=== PATIENT | male | born 1950 | race Caucasian/White ===

== ENCOUNTER 2023-01-21 12:13 | Inpatient (IN) | payer OTHER, MEDICARE ==
[2023-01-21 15:06] LABS: BASO % 0.5 % (0-2.0); EOS % 1.9 % (0-4.5); HEMATOCRIT 38.4 % (35.4-49); HEMOGLOBIN 12.9 GM/dL (11.7-16.9); LYMPH % 18.3 % (8-40); MCH 29.1 pg (25.7-33.7); MCHC 33.5 g/dl (32.0-35.9); MEAN CELL VOLUME 86.8 fl (80-96); MEAN PLT VOLUME 8.3 fl (7.5-11.1); MONO % 6.6 % (3.8-10.2); NEUT % 72.7 % (42.8-82.8); PLATELET COUNT 331 10^3/uL (134-434); RBC 4.43 M/mm3 (4.00-5.60); RDW 14.8 % (11.9-15.9); WHITE BLOOD COUNT 11.3 K/mm3 (4.0-10.0)
[2023-01-21 15:22] LABS: INR 1.21 (0.83-1.09); POTASSIUM 3.7 mmol/L (3.5-5.1)
[2023-01-21 15:25] LABS: CALCIUM 9.3 mg/dL (8.5-10.1)
[2023-01-21 15:26] LABS: ALBUMIN 3.6 g/dl (3.4-5.0); BLOOD UREA NITROGEN 12.8 mg/dL (7-18)
[2023-01-21 15:29] LABS: CREATININE 0.7 mg/dL (0.55-1.3)
[2023-01-21 15:30] LABS: BILIRUBIN,TOTAL 1.2 mg/dL (0.2-1); TOT PROT 7.2 g/dl (6.4-8.2)
[2023-01-21] MEDS ORDERED: VANCOMYCIN 1,000 MG in DEXTROSE 5%-WATER - 250 ML IVPB ONE (15:31)
[2023-01-21 16:07] LABS: ERYTHROCYTE SEDIMENTATION RATE 22 mm/hr (0-20)
[2023-01-21] MEDS ORDERED: BACITRACIN ZINC 15 GM TUBE TOPICAL OINTMENT ONE (16:25)
[2023-01-21] MEDS ORDERED: METOPROLOL TARTRATE 50 MG PO SCH (17:15)
[2023-01-21] MEDS ORDERED: VANCOMYCIN HCL 1,500 MG in DEXTROSE 5%-WATER - 250 ML IVPB SCH (17:15)
[2023-01-21] MEDS ORDERED: VANCOMYCIN PREMIX 1.5 GM 1,500 MG/300 ML BAG IVPB ONE (17:30)
[2023-01-21] MEDS ORDERED: CEFEPIME HCL 2 GM VIAL (RESTRICTED TO ID) IVPB SCH (22:00)
[2023-01-21] MEDS ORDERED: ELIQUIS PO SCH (22:00)
[2023-01-21] MEDS ORDERED: ROSUVASTATIN CA 5 MG TABLET ONE (22:07)
[2023-01-21] MEDS ORDERED: METOPROLOL TARTRATE 50 MG TABLET (FP) ONE (22:07)
[2023-01-21] MEDS ORDERED: APIXABAN 5 MG TABLET ONE (22:07)
[2023-01-21] MEDS ORDERED: CEFEPIME 2 GM/100 ML BAG IVPB ONE (22:08)
[2023-01-21] MEDS: ROSUVASTATIN CA 5 MG TABLET PO SCH (22:41)
[2023-01-21] MEDS: METOPROLOL TARTRATE 50 MG TABLET (FP) PO SCH (22:41)
[2023-01-21] MEDS: APIXABAN 5 MG TABLET PO SCH (22:41)
[2023-01-21] MEDS: CEFEPIME 2 GM in DEXTROSE 5%-WATER 100 ML IVPB SCH (22:43)
[2023-01-21] MEDS: INSULIN SLIDING SCALE (NOVOLOG) 1 VIAL SQ SCH (22:51)
[2023-01-22 00:25] VITALS: BMI 32.3
[2023-01-22] MEDS: INSULIN SLIDING SCALE (NOVOLOG) 1 VIAL SQ SCH ×4 (06:00→22:02)
[2023-01-22] MEDS ORDERED: VANCOMYCIN PREMIX 1.5 GM 1,500 MG/300 ML BAG IVPB SCH (09:00)
[2023-01-22] MEDS: PARoxetine HCL 10 MG TABLET PO SCH (09:20)
[2023-01-22] MEDS: APIXABAN 5 MG TABLET PO SCH ×2 (09:21→21:49)
[2023-01-22] MEDS: CEFEPIME 2 GM in DEXTROSE 5%-WATER 100 ML IVPB SCH (09:21)
[2023-01-22] MEDS: METOPROLOL TARTRATE 50 MG TABLET (FP) PO SCH ×2 (09:21→21:49)
[2023-01-22 09:24] LABS: BASO % 0.6 % (0-2.0); EOS % 3.6 % (0-4.5); HEMATOCRIT 36.6 % (35.4-49); HEMOGLOBIN 12.7 GM/dL (11.7-16.9); LYMPH % 19.3 % (8-40); MCH 29.7 pg (25.7-33.7); MCHC 34.8 g/dl (32.0-35.9); MEAN CELL VOLUME 85.3 fl (80-96); MEAN PLT VOLUME 8.3 fl (7.5-11.1); MONO % 6.2 % (3.8-10.2); NEUT % 70.3 % (42.8-82.8); PLATELET COUNT 308 10^3/uL (134-434); RBC 4.29 M/mm3 (4.00-5.60); RDW 14.7 % (11.9-15.9); WHITE BLOOD COUNT 9.4 K/mm3 (4.0-10.0)
[2023-01-22 09:42] LABS: POTASSIUM 3.8 mmol/L (3.5-5.1)
[2023-01-22 09:59] LABS: ALBUMIN 3.2 g/dl (3.4-5.0); BLOOD UREA NITROGEN 13.9 mg/dL (7-18); CALCIUM 8.8 mg/dL (8.5-10.1); MAGNESIUM 2.2 mg/dL (1.8-2.4)
[2023-01-22] MEDS ORDERED: PAROXETINE HCL 25 MG PO SCH (10:00)
[2023-01-22] MEDS ORDERED: LOSARTAN 50MG/HCTZ 12.5MG 1 TAB PO SCH (10:00)
[2023-01-22] MEDS ORDERED: PATIENT'S OWN MEDICATION (NON-FORMULARY) (Losartan/Hydrochlorothiazide [Losartan-Hctz 100- PO SCH (10:00)
[2023-01-22] MEDS ORDERED: HYDROCHLOROTHIAZIDE 25 MG TABLET (FP) PO SCH (10:00)
[2023-01-22] MEDS ORDERED: ROSUVASTATIN CALCIUM 5 MG PO SCH (10:00)
[2023-01-22 10:02] LABS: CREATININE 0.7 mg/dL (0.55-1.3); PHOSPHOROUS 3.1 mg/dL (2.5-4.9)
[2023-01-22 10:03] LABS: TOT PROT 6.6 g/dl (6.4-8.2)
[2023-01-22 10:10] LABS: BILIRUBIN,TOTAL 1.3 mg/dL (0.2-1)
[2023-01-22] MEDS: CEFTRIAXONE 2 GM in DEXTROSE 5%-WATER 100 ML IVPB SCH (17:05)
[2023-01-22] MEDS: CEFEPIME HCL 2 GM VIAL (RESTRICTED TO ID) IVPB SCH (17:09)
[2023-01-22] MEDS: ROSUVASTATIN CA 5 MG TABLET PO SCH (21:49)
[2023-01-22] MEDS: VANCOMYCIN PREMIX 1.5 GM 1,500 MG/300 ML BAG IVPB SCH (21:50)
[2023-01-23] MEDS: METOPROLOL TARTRATE 50 MG TABLET (FP) PO SCH ×2 (09:37→21:54)
[2023-01-23] MEDS: PARoxetine HCL 10 MG TABLET PO SCH (09:37)
[2023-01-23] MEDS: CEFTRIAXONE 2 GM in DEXTROSE 5%-WATER 100 ML IVPB SCH (09:37)
[2023-01-23] MEDS: APIXABAN 5 MG TABLET PO SCH ×2 (09:37→21:54)
[2023-01-23] MEDS: VANCOMYCIN PREMIX 1.5 GM 1,500 MG/300 ML BAG IVPB SCH ×2 (09:38→21:54)
[2023-01-23 10:00] LABS: POTASSIUM 4.1 mmol/L (3.5-5.1)
[2023-01-23 10:05] LABS: HEMATOCRIT 36.6 % (35.4-49); HEMOGLOBIN 13.2 GM/dL (11.7-16.9); MCH 30.8 pg (25.7-33.7); MCHC 36.1 g/dl (32.0-35.9); MEAN CELL VOLUME 85.3 fl (80-96); MEAN PLT VOLUME 8.2 fl (7.5-11.1); PLATELET COUNT 307 10^3/uL (134-434); RBC 4.28 M/mm3 (4.00-5.60); RDW 14.9 % (11.9-15.9); WHITE BLOOD COUNT 7.8 K/mm3 (4.0-10.0)
[2023-01-23 10:06] LABS: CALCIUM 8.8 mg/dL (8.5-10.1)
[2023-01-23 10:07] LABS: ALBUMIN 3.1 g/dl (3.4-5.0); MAGNESIUM 2.2 mg/dL (1.8-2.4)
[2023-01-23 10:10] LABS: CREATININE 0.8 mg/dL (0.55-1.3); PHOSPHOROUS 2.8 mg/dL (2.5-4.9)
[2023-01-23 10:11] LABS: BILIRUBIN,TOTAL 0.9 mg/dL (0.2-1); TOT PROT 6.5 g/dl (6.4-8.2)
[2023-01-23] MEDS: INSULIN SLIDING SCALE (NOVOLOG) 1 VIAL SQ SCH ×4 (11:50→22:04)
[2023-01-23] MEDS: ROSUVASTATIN CA 5 MG TABLET PO SCH (21:54)
[2023-01-24] MEDS: INSULIN SLIDING SCALE (NOVOLOG) 1 VIAL SQ SCH ×4 (06:00→22:01)
[2023-01-24] MEDS: METOPROLOL TARTRATE 50 MG TABLET (FP) PO SCH ×2 (09:22→21:55)
[2023-01-24] MEDS: APIXABAN 5 MG TABLET PO SCH (09:23)
[2023-01-24] MEDS: CEFTRIAXONE 2 GM in DEXTROSE 5%-WATER 100 ML IVPB SCH (09:23)
[2023-01-24 09:51] LABS: HEMATOCRIT 39.1 % (35.4-49); HEMOGLOBIN 13.3 GM/dL (11.7-16.9); MCH 29.8 pg (25.7-33.7); MCHC 34.1 g/dl (32.0-35.9); MEAN CELL VOLUME 87.2 fl (80-96); MEAN PLT VOLUME 8.5 fl (7.5-11.1); PLATELET COUNT 347 10^3/uL (134-434); RBC 4.48 M/mm3 (4.00-5.60); RDW 14.2 % (11.9-15.9); WHITE BLOOD COUNT 8.5 K/mm3 (4.0-10.0)
[2023-01-24 10:09] LABS: POTASSIUM 4.3 mmol/L (3.5-5.1)
[2023-01-24 10:16] LABS: CALCIUM 8.9 mg/dL (8.5-10.1)
[2023-01-24] MEDS: PARoxetine HCL 10 MG TABLET PO SCH (10:16)
[2023-01-24 10:17] LABS: ALBUMIN 3.3 g/dl (3.4-5.0); BLOOD UREA NITROGEN 15.2 mg/dL (7-18); MAGNESIUM 2.3 mg/dL (1.8-2.4)
[2023-01-24 10:20] LABS: CREATININE 0.9 mg/dL (0.55-1.3); PHOSPHOROUS 2.6 mg/dL (2.5-4.9)
[2023-01-24 10:22] LABS: BILIRUBIN,TOTAL 0.8 mg/dL (0.2-1); TOT PROT 7.1 g/dl (6.4-8.2)
[2023-01-24] MEDS: VANCOMYCIN HCL 1,500 MG in DEXTROSE 5%-WATER - 250 ML IVPB SCH ×2 (10:45→10:46)
[2023-01-24] MEDS: VANCOMYCIN PREMIX 1.5 GM 1,500 MG/300 ML BAG IVPB SCH ×2 (10:51→21:54)
[2023-01-24] MEDS ORDERED: PARoxetine HCL 20 MG TABLET PO SCH (17:00)
[2023-01-24] MEDS ORDERED: INSULIN (LEVEMIR) 100 UNITS/ML UNITS SQ ONE (21:35)
[2023-01-24] MEDS: ROSUVASTATIN CA 5 MG TABLET PO SCH (21:55)
[2023-01-25] MEDS: VANCOMYCIN PREMIX 1.5 GM 1,500 MG/300 ML BAG IVPB SCH ×2 (08:44→10:25)
[2023-01-25] MEDS: CEFTRIAXONE 2 GM in DEXTROSE 5%-WATER 100 ML IVPB SCH (09:18)
[2023-01-25] MEDS: METOPROLOL TARTRATE 50 MG TABLET (FP) PO SCH ×2 (09:19→22:29)
[2023-01-25] MEDS: PARoxetine HCL 20 MG TABLET PO SCH (09:19)
[2023-01-25] MEDS: CEFTRIAXONE 1 GM in DEXTROSE 5%-WATER - 50 ML IVPB SCH (10:29)
[2023-01-25] MEDS: DOXYCYCLINE HYCLATE 100 MG CAPSULE PO SCH ×2 (10:29→17:25)
[2023-01-25 11:05] LABS: HEMATOCRIT 36.2 % (35.4-49); HEMOGLOBIN 12.9 GM/dL (11.7-16.9); MCH 30.1 pg (25.7-33.7); MCHC 35.7 g/dl (32.0-35.9); MEAN CELL VOLUME 84.3 fl (80-96); PLATELET COUNT 332 10^3/uL (134-434); RDW 14.4 % (11.9-15.9); WHITE BLOOD COUNT 9.2 K/mm3 (4.0-10.0)
[2023-01-25] MEDS: INSULIN SLIDING SCALE (NOVOLOG) 1 VIAL SQ SCH ×3 (11:10→22:29)
[2023-01-25 11:35] LABS: ALBUMIN 3.3 g/dl (3.4-5.0); CALCIUM 8.6 mg/dL (8.5-10.1)
[2023-01-25 11:36] LABS: BLOOD UREA NITROGEN 14.8 mg/dL (7-18); MAGNESIUM 2.3 mg/dL (1.8-2.4)
[2023-01-25 11:39] LABS: CREATININE 0.8 mg/dL (0.55-1.3); PHOSPHOROUS 2.6 mg/dL (2.5-4.9)
[2023-01-25 11:40] LABS: BILIRUBIN,TOTAL 0.8 mg/dL (0.2-1); TOT PROT 6.7 g/dl (6.4-8.2)
[2023-01-25] MEDS ORDERED: ACETAMINOPHEN 325 MG TABLET (FP) PO PRN (17:02)
[2023-01-25] MEDS: ROSUVASTATIN CA 5 MG TABLET PO SCH (22:29)
[2023-01-26] MEDS: INSULIN SLIDING SCALE (NOVOLOG) 1 VIAL SQ SCH ×5 (01:07→21:36)
[2023-01-26] MEDS: CEFTRIAXONE 1 GM in DEXTROSE 5%-WATER - 50 ML IVPB SCH (09:19)
[2023-01-26] MEDS: PARoxetine HCL 20 MG TABLET PO SCH (09:19)
[2023-01-26] MEDS: DOXYCYCLINE HYCLATE 100 MG CAPSULE PO SCH ×2 (09:19→17:01)
[2023-01-26] MEDS: METOPROLOL TARTRATE 50 MG TABLET (FP) PO SCH ×2 (09:19→21:35)
[2023-01-26 12:50] LABS: INR 1.25 (0.83-1.09); PROTHROMBIN TIME (PATIENT) 14.5 SEC (9.7-13.0)
[2023-01-26 13:12] LABS: HEMATOCRIT 38.3 % (35.4-49); HEMOGLOBIN 13.2 GM/dL (11.7-16.9); MCH 29.7 pg (25.7-33.7); MCHC 34.5 g/dl (32.0-35.9); RBC 4.46 M/mm3 (4.00-5.60); RDW 14.6 % (11.9-15.9)
[2023-01-26 13:13] LABS: POTASSIUM 4.2 mmol/L (3.5-5.1)
[2023-01-26 13:15] LABS: PLATELET COUNT 323 10^3/uL (134-434); WHITE BLOOD COUNT 12.7 K/mm3 (4.0-10.0)
[2023-01-26 13:18] LABS: ALBUMIN 3.3 g/dl (3.4-5.0); BLOOD UREA NITROGEN 12.8 mg/dL (7-18); CALCIUM 8.7 mg/dL (8.5-10.1); MAGNESIUM 2.4 mg/dL (1.8-2.4)
[2023-01-26 13:22] LABS: CREATININE 0.7 mg/dL (0.55-1.3); PHOSPHOROUS 3.1 mg/dL (2.5-4.9)
[2023-01-26 13:23] LABS: BILIRUBIN,TOTAL 0.6 mg/dL (0.2-1); HDL CHOLESTEROL 34 mg/dL (40-60); TOT PROT 6.8 g/dl (6.4-8.2)
[2023-01-26 13:24] LABS: CHOLESTEROL 124 mg/dL (50-200)
[2023-01-26 13:25] LABS: LDL CHOLESTEROL (ONLY SJRH) 75 mg/dL (5-100)
[2023-01-26] MEDS: ROSUVASTATIN CA 5 MG TABLET PO SCH (21:35)
[2023-01-27] MEDS: INSULIN SLIDING SCALE (NOVOLOG) 1 VIAL SQ SCH ×4 (06:40→22:04)
[2023-01-27] MEDS ORDERED: LIDOCAINE HCL 1%, 10 MG/ML (20ML VIAL) ONE (07:14)
[2023-01-27] MEDS ORDERED: VANCOMYCIN 1,000 MG VIAL (RESTRICTED TO ID ONLY) ONE (07:14)
[2023-01-27] MEDS ORDERED: BUPIVACAINE HCL/PF 0.5% (5MG/ML) 10 ML VIAL ONE (07:15)
[2023-01-27] MEDS ORDERED: PROMETHAZINE HCL 25 MG/1 ML VIAL IVPB PRN ×2 (07:27→09:00)
[2023-01-27] MEDS ORDERED: oxyCODONE HCL 5 MG TABLET PO PRN (07:27)
[2023-01-27] MEDS ORDERED: ONDANSETRON 4 MG/2 ML VIAL IVPUSH PRN ×2 (07:27→09:00)
[2023-01-27] MEDS ORDERED: LACTATED RINGERS SOLUTION 1,000 ML IV SCH (07:30)
[2023-01-27] MEDS ORDERED: LIDOCAINE HCL 1%, 10 MG/ML (20ML VIAL) INF ONE ×2 (07:42→08:10)
[2023-01-27] MEDS ORDERED: ceFAZolin SODIUM 1 GM VIAL IVPB ONE (07:42)
[2023-01-27] MEDS ORDERED: BUPIVACAINE HCL/PF 0.5% (5MG/ML) 10 ML VIAL IJ ONE ×2 (07:43→08:10)
[2023-01-27] MEDS ORDERED: PROPOFOL 20 ML ONE (07:56)
[2023-01-27] MEDS ORDERED: MIDAZOLAM HCL 2 MG/2 ML SINGLE DOSE VIAL ONE (07:56)
[2023-01-27] MEDS ORDERED: FENTANYL CITRATE/PF 50 MCG/ML VIAL ONE ×2 (07:56)
[2023-01-27] MEDS ORDERED: ACETAMINOPHEN 325 MG TABLET (FP) PO PRN (09:00)
[2023-01-27] MEDS: LACTATED RINGERS SOLUTION 1,000 ML IV SCH (09:40)
[2023-01-27 10:01] LABS: BASO % 0.9 % (0-2.0); EOS % 2.7 % (0-4.5); HEMATOCRIT 35.9 % (35.4-49); HEMOGLOBIN 12.7 GM/dL (11.7-16.9); LYMPH % 24.9 % (8-40); MCH 30.3 pg (25.7-33.7); MCHC 35.4 g/dl (32.0-35.9); MEAN CELL VOLUME 85.6 fl (80-96); MEAN PLT VOLUME 8.1 fl (7.5-11.1); MONO % 5.3 % (3.8-10.2); NEUT % 66.2 % (42.8-82.8); PLATELET COUNT 315 10^3/uL (134-434); RBC 4.19 M/mm3 (4.00-5.60); RDW 14.7 % (11.9-15.9); WHITE BLOOD COUNT 9.3 K/mm3 (4.0-10.0)
[2023-01-27] MEDS: PARoxetine HCL 20 MG TABLET PO SCH (10:21)
[2023-01-27] MEDS: METOPROLOL TARTRATE 50 MG TABLET (FP) PO SCH ×2 (10:21→21:52)
[2023-01-27] MEDS: DOXYCYCLINE HYCLATE 100 MG CAPSULE PO SCH ×2 (10:21→17:20)
[2023-01-27] MEDS: CEFTRIAXONE 1 GM in DEXTROSE 5%-WATER - 50 ML IVPB SCH (10:22)
[2023-01-27 10:32] LABS: HEMATOCRIT 37.8 % (35.4-49); HEMOGLOBIN 13.1 GM/dL (11.7-16.9); MCH 30.3 pg (25.7-33.7); MCHC 34.6 g/dl (32.0-35.9); MEAN CELL VOLUME 87.6 fl (80-96); MEAN PLT VOLUME 8.1 fl (7.5-11.1); PLATELET COUNT 334 10^3/uL (134-434); RBC 4.32 M/mm3 (4.00-5.60); RDW 14.6 % (11.9-15.9); WHITE BLOOD COUNT 9.7 K/mm3 (4.0-10.0)
[2023-01-27 12:06] LABS: ALBUMIN 3.5 g/dl (3.4-5.0); CALCIUM 9.2 mg/dL (8.5-10.1); MAGNESIUM 2.4 mg/dL (1.8-2.4)
[2023-01-27 12:07] LABS: BLOOD UREA NITROGEN 13.8 mg/dL (7-18)
[2023-01-27 12:09] LABS: CREATININE 0.7 mg/dL (0.55-1.3)
[2023-01-27 12:11] LABS: BILIRUBIN,TOTAL 0.7 mg/dL (0.2-1)
[2023-01-27 12:13] LABS: POTASSIUM 4.3 mmol/L (3.5-5.1)
[2023-01-27] MEDS: ROSUVASTATIN CA 5 MG TABLET PO SCH (21:52)
[2023-01-28 01:29] VITALS: RESP 18
[2023-01-28] MEDS: INSULIN SLIDING SCALE (NOVOLOG) 1 VIAL SQ SCH ×4 (06:29→21:04)
[2023-01-28] MEDS: CEFTRIAXONE 1 GM in DEXTROSE 5%-WATER - 50 ML IVPB SCH (09:16)
[2023-01-28] MEDS: METOPROLOL TARTRATE 50 MG TABLET (FP) PO SCH ×2 (09:18→21:32)
[2023-01-28] MEDS: DOXYCYCLINE HYCLATE 100 MG CAPSULE PO SCH ×2 (09:18→17:17)
[2023-01-28] MEDS: PARoxetine HCL 20 MG TABLET PO SCH (09:18)
[2023-01-28 09:22] LABS: HEMATOCRIT 39.1 % (35.4-49); HEMOGLOBIN 13.8 GM/dL (11.7-16.9); MCH 30.2 pg (25.7-33.7); MCHC 35.4 g/dl (32.0-35.9); MEAN CELL VOLUME 85.2 fl (80-96); MEAN PLT VOLUME 8.5 fl (7.5-11.1); PLATELET COUNT 365 10^3/uL (134-434); RBC 4.59 M/mm3 (4.00-5.60); RDW 14.8 % (11.9-15.9); WHITE BLOOD COUNT 10.6 K/mm3 (4.0-10.0)
[2023-01-28] MEDS: LACTATED RINGERS SOLUTION 1,000 ML IV SCH (09:22)
[2023-01-28] MEDS: APIXABAN 5 MG TABLET PO SCH ×2 (09:24→21:32)
[2023-01-28 09:31] LABS: POTASSIUM 4.6 mmol/L (3.5-5.1)
[2023-01-28 09:37] LABS: ALBUMIN 3.5 g/dl (3.4-5.0); BLOOD UREA NITROGEN 13.4 mg/dL (7-18); CALCIUM 9.2 mg/dL (8.5-10.1); MAGNESIUM 2.2 mg/dL (1.8-2.4)
[2023-01-28 09:41] LABS: CREATININE 0.8 mg/dL (0.55-1.3)
[2023-01-28 09:42] LABS: BILIRUBIN,TOTAL 0.9 mg/dL (0.2-1)
[2023-01-28] MEDS: ROSUVASTATIN CA 5 MG TABLET PO SCH (21:32)
[2023-01-29] MEDS: INSULIN SLIDING SCALE (NOVOLOG) 1 VIAL SQ SCH ×4 (06:17→21:29)
[2023-01-29 09:10] LABS: HEMATOCRIT 37.8 % (35.4-49); HEMOGLOBIN 13.5 GM/dL (11.7-16.9); MCH 30.3 pg (25.7-33.7); MCHC 35.8 g/dl (32.0-35.9); MEAN CELL VOLUME 84.7 fl (80-96); MEAN PLT VOLUME 8.4 fl (7.5-11.1); PLATELET COUNT 342 10^3/uL (134-434); RBC 4.46 M/mm3 (4.00-5.60); RDW 14.9 % (11.9-15.9); WHITE BLOOD COUNT 9.9 K/mm3 (4.0-10.0)
[2023-01-29] MEDS ORDERED: cefTRIAXone SODIUM 1 GM VIAL ONE (09:13)
[2023-01-29 09:23] LABS: POTASSIUM 4.5 mmol/L (3.5-5.1)
[2023-01-29 09:38] LABS: ALBUMIN 3.4 g/dl (3.4-5.0); BLOOD UREA NITROGEN 14.3 mg/dL (7-18); MAGNESIUM 2.2 mg/dL (1.8-2.4)
[2023-01-29 09:40] LABS: PHOSPHOROUS 3.1 mg/dL (2.5-4.9)
[2023-01-29 09:41] LABS: BILIRUBIN,TOTAL 0.9 mg/dL (0.2-1); CREATININE 0.7 mg/dL (0.55-1.3); TOT PROT 6.8 g/dl (6.4-8.2)
[2023-01-29] MEDS: METOPROLOL TARTRATE 50 MG TABLET (FP) PO SCH (09:58)
[2023-01-29] MEDS: PARoxetine HCL 20 MG TABLET PO SCH (09:58)
[2023-01-29] MEDS: DOXYCYCLINE HYCLATE 100 MG CAPSULE PO SCH ×2 (09:58→17:07)
[2023-01-29] MEDS: APIXABAN 5 MG TABLET PO SCH ×2 (09:58→21:31)
[2023-01-29] MEDS: CEFTRIAXONE 1 GM in DEXTROSE 5%-WATER - 50 ML IVPB SCH (09:59)
[2023-01-29] MEDS: LACTATED RINGERS SOLUTION 1,000 ML IV SCH (10:46)
[2023-01-29] MEDS ORDERED: INSULIN (NOVOLOG) ASPART 100 UNITS/ML 10ML VIAL ONE (21:09)
[2023-01-29] MEDS: ROSUVASTATIN CA 5 MG TABLET PO SCH (21:31)
[2023-01-30] MEDS: METOPROLOL TARTRATE 50 MG TABLET (FP) PO SCH ×2 (04:35→09:07)
[2023-01-30] MEDS: INSULIN SLIDING SCALE (NOVOLOG) 1 VIAL SQ SCH ×2 (06:45→10:43)
[2023-01-30 08:31] VITALS: BP 134/72; PULSE 63; TEMP 99.1
[2023-01-30] MEDS: DOXYCYCLINE HYCLATE 100 MG CAPSULE PO SCH (09:07)
[2023-01-30] MEDS: PARoxetine HCL 20 MG TABLET PO SCH (09:07)
[2023-01-30] MEDS: CEFTRIAXONE 1 GM in DEXTROSE 5%-WATER - 50 ML IVPB SCH (09:07)
[2023-01-30] MEDS: APIXABAN 5 MG TABLET PO SCH (09:07)
[2023-01-30] MEDS: LACTATED RINGERS SOLUTION 1,000 ML IV SCH (09:08)
[2023-01-30 09:17] LABS: HEMATOCRIT 39.3 % (35.4-49); HEMOGLOBIN 14.1 GM/dL (11.7-16.9); MCH 30.4 pg (25.7-33.7); MCHC 35.8 g/dl (32.0-35.9); MEAN CELL VOLUME 84.7 fl (80-96); PLATELET COUNT 371 10^3/uL (134-434); RBC 4.64 M/mm3 (4.00-5.60); RDW 14.9 % (11.9-15.9); WHITE BLOOD COUNT 9.7 K/mm3 (4.0-10.0)
[2023-01-30 09:38] LABS: POTASSIUM 4.1 mmol/L (3.5-5.1)
[2023-01-30 09:48] LABS: ALBUMIN 3.6 g/dl (3.4-5.0); BLOOD UREA NITROGEN 13.4 mg/dL (7-18); MAGNESIUM 2.1 mg/dL (1.8-2.4)
[2023-01-30 09:50] LABS: CREATININE 0.9 mg/dL (0.55-1.3); PHOSPHOROUS 2.9 mg/dL (2.5-4.9)
[2023-01-30 09:52] LABS: BILIRUBIN,TOTAL 1.1 mg/dL (0.2-1); TOT PROT 7.2 g/dl (6.4-8.2)
[2023-01-30] MEDS ORDERED: DOXYCYCLINE HYCLATE 100 MG CAPSULE PO SCH (18:00)
[2023-01-31] MEDS ORDERED: CEFPODOXIME PROXETIL 100 MG TABLET PO SCH (10:00)
== END 2023-01-30 14:14 | disposition home or self-care (01) | DRG 256 ==
LOC: JER 12:13 → JERBED 16:11 → J6S 01-22 00:03
PROVIDERS: ADMIT Internal Medicine; ATTEND Internal Medicine
PROC: 0Y6R0Z1 Detachment at Right 2nd Toe, High, Open Approach (ICD-10-PCS; principal; 2023-01-27 07:30)
DX: E11.52 Type 2 diabetes mellitus with diabetic peripheral angiopathy with gangrene (principal); L03.115 Cellulitis of right lower limb; M86.8X7 Other osteomyelitis, ankle and foot; E11.42 Type 2 diabetes mellitus with diabetic polyneuropathy; I10 Essential (primary) hypertension; F39 Unspecified mood [affective] disorder; E11.69 Type 2 diabetes mellitus with other specified complication; E78.5 Hyperlipidemia, unspecified; I48.0 Paroxysmal atrial fibrillation; L03.031 Cellulitis of right toe; B96.1 Klebsiella pneumoniae [K. pneumoniae] as the cause of diseases classified elsewhere
CPT/HCPCS: 36415; 73630-TC-RT-FY; 80053; 80061; 82607; 82746; 82962; 83036; 83735; 84100; 85025; 85027; 85610; 85651; 85730; 86140; 86850; 86900; 86901; 87040; 87070; 87186; 87205; 88305-TC; 88311-TC; 93005; 93010; 93926-TC; 94760; 97597; 99285-25; G0277; G0480